=== PATIENT | male | born 1970 | race Caucasian/White ===

== ENCOUNTER 2019-07-15 12:03 | Emergency (ER) | payer MEDICAID ==
--- NOTE | 2019-07-15 12:30 | Emergency Department Record ---
History of Present Illness - General Chief complaint: Eye Problem Stated complaint: ENT Time Seen by Provider: 07/15/19 12:25 Source: Patient Mode of Arrival: Ambulatory Limitations: No limitations - History of Present Illness Initial comments: Pt from home with complaint of sinus pressure and congestion without visual change or LY for one week. Pt has thick mucos without blood. Pt is a smoker and "get this every year". He has non productive cough. Also notes 2 days of swelling to the right lower eye lid with increased tears. No contacts or tra varsha. - Related Data Previous Rx's Medication Instructions Recorded Azithromycin [Zithromax] 250 mg PO DAILY 5 Days #6 tablet 07/15/19 Allergies Allergy/AdvReac Type Severity Reaction Status Date / Time No Known Drug Allergies Allergy Verified 07/15/19 12:09 Review of Systems Constitutional: Denies: Chills, Fever, Weakness Eyes: Reports: As per HPI, Eye discharge. Denies: Photophobia, Vision change ENT: Reports: As per HPI, Congestion. Denies: Ear pain, Epistaxis, Throat pain Respiratory: Reports: As per HPI, Cough. Denies: Hemoptysis, Wheezes Cardiovascular: Denies: Chest pain, Syncope Endocrine: Denies: Fatigue Gastrointestinal: Denies: Abdominal pain, Diarrhea, Nausea, Vomiting Musculoskeletal: Denies: Back pain Skin: Denies: Bruising, Rash Neurological: Denies: Headache Psychiatric: Denies: Anxiety Hematological/Lymphatic: Denies: Anemia Past Medical History - SOCIAL HISTORY Smoking Status: Current every day smoker - RESPIRATORY Hx Respiratory Disorders: Yes Hx Pneumonia: Yes (hx (October 2013)) - CARDIOVASCULAR Hx Cardio Disorders: Yes Hx Hypertension: Yes - NEURO Hx Neuro Disorders: No - GI Hx GI Disorders: Yes Hx GI Bleed: Yes - Hx Genitourinary Disorders: No - ENDOCRINE Hx Endocrine Disorders: No - MUSCULOSKELETAL Hx Musculoskeletal Disorders: Yes Hx Back Injury: Yes (Herniated Disc) - PSYCH Hx Psych Problems: No - HEMATOLOGY/ONCOLOGY Hx Hematology/Oncology Disorders: No Family Medical History Hx Heart Disease: Grandparents Hx HTN: Father Physical Exam - General General Appearance: Alert, Oriented x3, Cooperative, No acute distress - Head Head exam: Atraumatic - Eye Eye exam: PERRL, EOMI, Other (right lower eye lid with mild erythema and swelling, inner lower lid with 0.5mm area of abscess. ) - ENT ENT exam: Mucous membranes moist Ear exam: Normal external inspection Nasal Exam: Sinus tenderness Mouth exam: Normal external inspection Teeth exam: Normal inspection Throat exam: Normal inspection - Neck Neck exam: Normal inspection, Full ROM. negative: Lymphadenopathy - Respiratory Respiratory exam: Normal lung sounds bilaterally. negative: Rhonchi, Wheezes - Cardiovascular Cardiovascular Exam: Regular rate, Normal rhythm. negative: Tachycardia - GI/Abdominal GI/Abdominal exam: Soft. negative: Tenderness - Extremities Extremities exam: Normal inspection - Back Back exam: Reports: Normal inspection - Neurological Neurological exam: Alert, Normal gait, Oriented X3 - Psychiatric Psychiatric exam: Normal affect, Normal mood - Skin Skin exam: Normal color. negative: Rash Course - Reevaluation(s) Reevaluation #1: 07/15/19 12:34 SEEN AND EXAM. SINUS SYMPTOMS WITH HX SINUSITIS, "PRE DM" on meds, SMOKER...Will treat with AB Reevaluation #2: 07/15/19 12:36 PROCEDURE: Right lower lid retracted and local with alcaine drops, 18g needle deroofed abscess with small return of purulent material and blood. Bleph 10 drops x 2 to lid. Tolerated well. Bleeding stopped. Procedures - Incision and Drainage Site: inner lower right eye lid Blade Size: 18g needle Disposition Disposition: Discharge Clinical Impression: Sinusitis, acute Qualifiers: Sinusitis location: maxillary Recurrence: recurrent Qualified Code(s): J01.01 - Acute recurrent maxillary sinusitis Blepharitis of eyelid of right eye Qualifiers: Blepharitis type: unspecified type Eyelid: lower Qualified Code(s): H01.002 - Unspecified blepharitis right lower eyelid Disposition: Home, Self-Care Condition: (1) Good Instructions: Sinusitis (ED), Blepharitis (ED) Additional Instructions: warm compress to right eye 3 times a day Take antibiotic as instructed til gone Use your Nasal Steroid spray BID Bleph 10 eye drops every 4 Hours while awake for 5 days STOP SMOKING TODAY Family Doc recheck in 3 days Return to the ED as needed. Prescriptions: Azithromycin [Zithromax] 250 mg PO DAILY 5 Days #6 tablet Forms: Patient Portal Access Time of Disposition: 12:30 Quality - Quality Measures Quality Measures: Adult Sinusitis (>18yr) - Adult Sinusitis: Abx Overuse Quality Measure: Measure #331: Adult Sinusitis Abx Overuse ICD10 Codes Entered: Yes Onset of symptoms over 10 days: No Presumed Bacterial: Yes Antibiotic Prescribed: Yes Adult Sinusitis: Antibiotic Within 10 Days of Symptoms: Medical Reason for Rx Within 10 Days [G9505] Reason for Prescription: Presumed Bacterial - Adult Sinusitis: Bacterial w/Abx Quality Measure: Measure #332: Adult Bacterial Sinusitis Correct Abx Use ICD10 Codes Entered: Yes Adult Sinusitis: Appropriate Antibiotic: Exclusion, Not Bacterial - Adult Sinusitis: CT Use Quality Measure: Measure #333: Adult Sinusitis ICD10 Codes Entered: Yes Adult Sinusitis: CT for Acute Sinusitis: < CT NOT ordered or received within 28 Days > [G9350] - Blood Pressure Screening Does Patient Have Any of the Following: No, Active Dx of HTN Systolic Measurement: ~ Screening for High Blood Pressure: Patient Exclusion, Hx of HTN [G9744]
[2019-07-15] MEDS ORDERED: SULFACETAMIDE SODIUM 15ML BTL OPTH ONE (12:43)
[2019-07-15] MEDS ORDERED: PROPARACAINE HCL OPTH 15ML BTL OPTH ONE (12:43)
== END 2019-07-15 12:47 | disposition home or self-care (01) ==
LOC: ER 12:03
DX: J01.01 Acute recurrent maxillary sinusitis (principal); H01.002 Unspecified blepharitis right lower eyelid; H00.032 Abscess of right lower eyelid
CPT/HCPCS: 67700; 99283